=== PATIENT | male | born 1945 | race Caucasian/White ===

== ENCOUNTER 2016-10-27 13:20 | Emergency (ER) | payer MEDICARE, BC ==
[2016-10-27] MEDS ORDERED: Sodium Chloride 0.9% 10 ML Syringe FLUSH PRN (13:24)
--- NOTE | 2016-10-27 13:24 | EDM.PDOC ---
ED HPI GENERAL MEDICAL PROBLEM - General Chief Complaint: Chest Pain Stated Complaint: CHEST PAIN Time Seen by Provider: 10/27/16 13:24 Source of Information: Reports: Patient, Old Records, RN, RN Notes Reviewed History Limitations: Reports: No Limitations - History of Present Illness INITIAL COMMENTS - FREE TEXT/NARRATIVE: Arrives from home by POV with c/o chest pain that began last evening as he laid down to rest. Admits to very slight shortness of breath. Denies cough, nausea, rapid HR, palpitations, N/V, or abdominal pain. Pt states that he has not taken any aspirin or nitroglycerin. Onset Date: 10/26/16 Onset Time: 20:00 (approx. time) Duration: Constant, Waxing/Waning Location: Reports: Chest Quality: Reports: Ache Severity: Mild Improves with: Reports: None Worsens with: Reports: None Associated Symptoms: Reports: No Other Symptoms Left Chest Pain Score (Numeric/FACES): 2 - Related Data Allergies Allergy/AdvReac Type Severity Reaction Status Date / Time cephalexin Allergy Cannot Verified 10/27/16 14:06 Remember choline fenofibrate Allergy Cannot Verified 10/27/16 14:06 [From Trilipix] Remember ciprofloxacin Allergy Cannot Verified 10/27/16 14:06 Remember Penicillins Allergy Cannot Verified 10/27/16 14:06 Remember rosuvastatin calcium Allergy Cannot Verified 10/27/16 14:06 [From Crestor] Remember simvastatin Allergy Cannot Verified 10/27/16 14:06 Remember Home Meds: Home Meds Allopurinol [Allopurinol] 150 mg PO BID 06/17/14 [History] Aspirin/Dipyridamole [Aggrenox 200-25 MG] 1 cap PO BID 06/17/14 [History] Escitalopram [Lexapro] 10 mg PO DAILY 06/17/14 [History] Furosemide [Furosemide] 40 mg PO BID 06/17/14 [History] Past Medical History HEENT History: Reports: Hard of Hearing Cardiovascular History: Reports: High Cholesterol, Hypertension, Other (See Below) (AAA) Respiratory History: Reports: Sleep Apnea Gastrointestinal History: Reports: Diverticulosis Genitourinary History: Reports: Other (See Below) Other Genitourinary History: hyperuricemia Musculoskeletal History: Reports: Gout, Osteoarthritis Neurological History: Reports: TIA, Other (See Below) Other Neuro History: meningioencephalitis Psychiatric History: Reports: Depression Other Psychiatric History: sleep apnea Endocrine/Metabolic History: Reports: Obesity/BMI 30+ Oncologic (Cancer) History: Reports: None - Past Surgical History GI Surgical History: Reports: Cholecystectomy, Colonoscopy, Hernia, Inguinal, Hernia Repair/Other Social & Family History - Family History Oncologic: Reports: Colon, Prostate - Tobacco Use Smoking Status *Q: Never Smoker Second Hand Smoke Exposure: No - Recreational Drug Use Recreational Drug Use: No - Living Situation & Occupation Living situation: Reports: Occupation: Retired ED ROS GENERAL - Review of Systems Review Of Systems: ROS reveals no pertinent complaints other than HPI. ED EXAM, GENERAL - Physical Exam Exam: See Below Exam Limited By: No Limitations General Appearance: Alert, No Apparent Distress, Obese Eye Exam: Bilateral Eye: Normal Inspection Ears: Hearing Loss (chronic/stable) Nose: Normal Inspection, Normal Mucosa, No Blood Throat/Mouth: Normal Inspection, Normal Lips, Normal Teeth, Normal Gums, Normal Oropharynx, Normal Voice, No Airway Compromise Head: Atraumatic, Normocephalic Neck: Normal Inspection, Supple, Non-Tender, Full Range of Motion Respiratory/Chest: No Respiratory Distress, Lungs Clear, No Accessory Muscle Use , Chest Non-Tender, Decreased Breath Sounds Cardiovascular: Regular Rate, Rhythm, No Edema GI/Abdominal: Normal Bowel Sounds, Soft, Other (benign morbidly obese abdomen) (Male) Exam: Deferred Rectal (Males) Exam: Deferred Extremities: Normal Inspection, Normal Range of Motion, Non-Tender, Normal Capillary Refill, No Pedal Edema Neurological: Alert, Oriented, CN II-XII Intact, Normal Cognition, No Motor/ Sensory Deficits Psychiatric: Normal Mood Skin Exam: Warm, Dry, Intact, Normal Color, No Rash EKG INTERPRETATION EKG Date: 10/27/16 Time: 13:28 Rhythm: Other (Sinus tach.) Rate (Beats/Min): 102 [place]: Normal P-Wave: Present QRS: Other (old inferior Q-waves) ST-T: Normal QT: Normal Comparison: NA - No Prior EKG EKG Interpretation Comments: Repeat EKG at 1851: no significant change, no acute ischemic changes. Course - Vital Signs Last Recorded V/S: Last Vital Signs Temp 35.6 C 10/27/16 13:24 Pulse 89 10/27/16 15:39 Resp 20 10/27/16 15:39 BP 120/69 10/27/16 15:39 Pulse Ox 94 L 10/27/16 15:39 - Orders/Labs/Meds Orders: Active Orders 24 hr Category Date Time Status EKG 12 Lead [EKG Documentation Completion] [] ONETIME Care 10/27/16 18:15 Active EKG 12 Lead [EKG Documentation Completion] [RC] STAT Care 10/27/16 13:24 Active Peripheral IV Care [RC] . DIRECTED Care 10/27/16 13:25 Active Heart Healthy Diet [DIET] Diet 10/27/16 Dinner Active TROPONIN I [CHEM] Timed Lab 10/27/16 18:35 Received Nitroglycerin [Nitrostat] Med 10/27/16 13:27 Active 0.4 mg SL Q5M PRN Sodium Chloride 0.9% [Saline Flush] Med 10/27/16 13:24 Active 10 ml FLUSH ASDIRECTED PRN Peripheral IV Insertion Adult [OM.PC] Stat Oth 10/27/16 13:24 Ordered Medication Orders Nitroglycerin (Nitrostat) 0.4 mg SL Q5M PRN PRN Reason: Chest Pain Last Admin: 10/27/16 13:39 Dose: 0.4 mg Sodium Chloride (Saline Flush) 10 ml FLUSH ASDIRECTED PRN PRN Reason: Keep Vein Open Last Admin: 10/27/16 13:43 Dose: 10 ml Labs: Laboratory Tests 10/27/16 10/27/16 10/27/16 Range/Units 13:45 13:45 13:45 WBC 10.3 H (5.0-10.0) 10^3/uL RBC 4.32 L (4.6-6.2) 10^6/uL Hgb 12.8 L (14.0-18.0) g/dL Hct 39.3 L (40.0-54.0) % MCV 91.0 (80-100) fL MCH 29.6 (27.0-34.0) pg MCHC 32.6 L (33.0-35.0) g/dL Plt Count 198 (150-450) 10^3/uL Neut % (Auto) 64.3 (42.2-75.2) % Lymph % (Auto) 26.8 (20.5-50.1) % [facility] % (Auto) 6.7 (2-8) % Eos % (Auto) 1.9 (1.0-3.0) % Baso % (Auto) 0.3 (0.0-1.0) % PT 9.7 (9.0-12.0) SEC INR 1.0 (0.9-1.2) APTT 25.4 (22.0-34.0) SEC D-Dimer, Quantitative 611 H (0-400) ng/mL Sodium 138 (135-145) mmol/L Potassium 4.1 (3.6-5.0) mmol/L Chloride 100 L (101-111) mmol/L Carbon Dioxide 25.0 (21.0-31.0) mmol/L Anion Gap 17.1 BUN 21 H (7-18) mg/dL Creatinine 1.0 (0.6-1.3) mg/dL Est Cr Clr Drug Dosing TNP Estimated GFR (MDRD) > 60 BUN/Creatinine Ratio 21.00 Glucose 186 H (74-105) mg/dL Calcium 9.3 (8.4-10.2) mg/dl Total Bilirubin 0.7 (0.2-1.0) mg/dL AST 29 (10-42) IU/L ALT 23 (10-60) IU/L Alkaline Phosphatase 65 (42-121) IU/L Creatine Kinase (26-174) IU/L Creatine Kinase Index (0-2.4) % CK-MB (CK-2) (0.4-4.7) ng/mL Troponin I < 0.02 (0.00-0.02) ng/ml B-Natriuretic Peptide 21 (0-100) pg/ml Total Protein 7.0 (6.7-8.2) g/dl Albumin 3.8 (3.2-5.5) g/dl Globulin 3.2 Albumin/Globulin Ratio 1.19 Amylase 36 (28-100) U/L Lipase 21 L (22-51) U/L /12/05 Range/Units 13:45 WBC (5.0-10.0) 10^3/uL RBC (4.6-6.2) 10^6/uL Hgb (14.0-18.0) g/dL Hct (40.0-54.0) % MCV (80-100) fL MCH (27.0-34.0) pg MCHC (33.0-35.0) g/dL Plt Count (150-450) 10^3/uL Neut % (Auto) (42.2-75.2) % Lymph % (Auto) (20.5-50.1) % [facility] % (Auto) (2-8) % Eos % (Auto) (1.0-3.0) % Baso % (Auto) (0.0-1.0) % PT (9.0-12.0) SEC INR (0.9-1.2) APTT (22.0-34.0) SEC D-Dimer, Quantitative (0-400) ng/mL Sodium (135-145) mmol/L Potassium (3.6-5.0) mmol/L Chloride (101-111) mmol/L Carbon Dioxide (21.0-31.0) mmol/L Anion Gap BUN (7-18) mg/dL Creatinine (0.6-1.3) mg/dL Est Cr Clr Drug Dosing Estimated GFR (MDRD) BUN/Creatinine Ratio Glucose (74-105) mg/dL Calcium (8.4-10.2) mg/dl Total Bilirubin (0.2-1.0) mg/dL AST (10-42) IU/L ALT (10-60) IU/L Alkaline Phosphatase (42-121) IU/L Creatine Kinase 283 H (26-174) IU/L Creatine Kinase Index 1.2 (0-2.4) % CK-MB (CK-2) 3.30 (0.4-4.7) ng/mL Troponin I (0.00-0.02) ng/ml B-Natriuretic Peptide (0-100) pg/ml Total Protein (6.7-8.2) g/dl Albumin (3.2-5.5) g/dl Globulin Albumin/Globulin Ratio Amylase (28-100) U/L Lipase (22-51) U/L Meds: Medications Generic Name Dose Route Start Last Admin Trade Name Freq PRN Reason Stop Dose Admin Nitroglycerin 0.4 mg 10/27/16 13:27 10/27/16 13:39 Nitrostat SL 0.4 mg Q5M PRN Administration Chest Pain Sodium Chloride 10 ml 10/27/16 13:24 10/27/16 13:43 Saline Flush FLUSH 10 ml ASDIRECTED PRN Administration Keep Vein Open Discontinued Medications Generic Name Dose Route Start Last Admin Trade Name Andressa PRN Reason Stop Dose Admin Aspirin 324 mg 10/27/16 13:27 10/27/16 13:32 Aspirin PO 10/27/16 13:28 324 mg ONETIME ONE Administration Iopamidol 100 ml 10/27/16 14:58 10/27/16 15:48 Isovue-370 (76%) IVPUSH 10/27/16 14:59 100 ml ONETIME ONE Administration - Radiology Interpretation Free Text/Narrative:: /CT chest: Low probability pulmonary embolism. No signs of heart failure, lung mass or lobar pneumonia. See rad report. Chest x-ray: No acute new cardiopulmonary abnormality. See rad report. Departure - Departure Time of Disposition: 19:10 Disposition: Home, Self-Care 01 Condition: Good Clinical Impression: Atypical chest pain Instructions: Nonspecific Chest Pain, [id number] Forms: ED Department Discharge Additional Instructions: No cardiac abnormality(s) or pulmonary (lung) blood clot found on today's evaluation. Follow up in clinic in two days with your doctor for recheck. Return to ER if worse at any time. Do not take nitroglycerin without consulting your doctor or a certified rehabilitation counselor as it caused a significant drop in your blood pressure. - My Orders Last 24 Hours: My Active Orders 10/27/16 13:24 EKG 12 Lead [EKG Documentation Completion] [RC] STAT Sodium Chloride 0.9% [Saline Flush] 10 ml FLUSH ASDIRECTED PRN Peripheral IV Insertion Adult [OM.PC] Stat 10/27/16 13:25 Peripheral IV Care [RC] . DIRECTED 10/27/16 13:27 Nitroglycerin [Nitrostat] 0.4 mg SL Q5M PRN 10/27/16 18:15 EKG 12 Lead [EKG Documentation Completion] [RC] ONETIME 10/27/16 18:35 TROPONIN I [CHEM] Timed 10/27/16 Dinner Heart Healthy Diet [DIET] - Assessment/Plan Last 24 Hours: My Active Orders 10/27/16 13:24 EKG 12 Lead [EKG Documentation Completion] [RC] STAT Sodium Chloride 0.9% [Saline Flush] 10 ml FLUSH ASDIRECTED PRN Peripheral IV Insertion Adult [OM.PC] Stat 10/27/16 13:25 Peripheral IV Care [RC] . DIRECTED 10/27/16 13:27 Nitroglycerin [Nitrostat] 0.4 mg SL Q5M PRN 10/27/16 18:15 EKG 12 Lead [EKG Documentation Completion] [RC] ONETIME 10/27/16 18:35 TROPONIN I [CHEM] Timed 10/27/16 Dinner Heart Healthy Diet [DIET]
[2016-10-27] MEDS ORDERED: Nitroglycerin 0.4 MG Tab.SL SL PRN (13:27)
[2016-10-27] MEDS ORDERED: Aspirin 81 MG Tab.Chew PO ONE (13:27)
--- NOTE | 2016-10-27 14:03 | CR ---
Clinical history: 71-year-old 110 pound male chest pain. Interpretation: Reasonable inspiratory effort [place] male with coarse bronchitic pattern and so me pleural parenchymal scarring (infiltrate?) blunting the left costophrenic sulcus that was present on 09 May 2015 exam i.e. unchanged. Normal cardiac silhouette without cephalization of flow or signs of alveolar edema. No lung mass, other focal lobar infiltrate or atelectasis. No pneumothorax. CONCLUSION: No acute new cardiopulmonary abnormality since 09 May 2015 exam.
[2016-10-27 14:09] LABS: CHLORIDE,CL 100 mmol/L (101-111); SODIUM,NA 138 mmol/L (135-145)
[2016-10-27] MEDS ORDERED: Iopamidol 755 Mg/ML 100 ML Bottle IVPUSH ONE (14:58)
[2016-10-27 15:41] VITALS: BP 120/69
--- NOTE | 2016-10-27 16:48 | CT ---
Clinical history: 71-year-old 412 pound male with chest pain whose serum d-dimer was 612 (pO2 92). Scan technique: PE CT scan of the chest compromised by patient body habitus and apparent Valsalva du ring exam (contrast demonstrated in both the superior vena cava and thoracic aorta but pulmonary art ryan is not well opacified) during the intravenous administration 100 cc nonionic Isovue 370 contrast while patient was lying supine on the Siemens multi slice scanner [place], [place] (5 cc/s via injector per PE protocol). All data archived in the PACS system for [employer], reformatting and study (lung/mediastinal windows). Interpretation: 1. Apparent flow defects throughout the pulmonary artery circulation i.e. no certain diagnostic evid ence of pulmonary artery embolism or thrombosis. 2. No focal lobar oligemia, peripheral pleural-based infarct, infiltrate, atelectasis or pleural eff usions. 3. No parenchymal lung nodule or mass lesion. No hilar or significant mediastinal lymphadenopathy bu t there do appear to be small paratracheal lymph nodes, on the left. Inflammatory? 4. 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 No fractu re or dislocation. 5. Mild left ventricular prominence without cephalization of vascular flow, signs of alveolar edema or dependent pleural effusion. No pericardial effusions. Normal caliber thoracic aorta i.e. no aneur ysm or dissection. CONCLUSION: Low probability pulmonary embolism. No signs of heart failure, lung mass or lobar pneumo art.
--- NOTE | 2016-11-11 21:38 | EKG ---
10/27/2016 - VERONICA WESTON - TIME: 06:51 p.m. EKG per my reading, shows sinus rhythm, no acute ST changes. [facility] /[id number]
--- NOTE | 2016-11-11 21:38 | EKG ---
10/27/2016 - VERONICA WESTON - TIME: 1:28 p.m. EKG per my reading, shows sinus rhythm with inferior Q-waves. [facility] /[id number]
== END 2016-10-27 20:15 | disposition home or self-care (01) ==
LOC: DL.ED 13:20
DX: R07.89 Other chest pain (principal); E78.00 Pure hypercholesterolemia, unspecified; I10 Essential (primary) hypertension; E66.9 Obesity, unspecified; F32.9 Major depressive disorder, single episode, unspecified; M19.90 Unspecified osteoarthritis, unspecified site; Z88.1 Allergy status to other antibiotic agents; Z88.8 Allergy status to other drugs, medicaments and biological substances; Z88.0 Allergy status to penicillin; Z79.899 Other long term (current) drug therapy; Z86.73 Personal history of transient ischemic attack (TIA), and cerebral infarction without residual deficits; Z90.49 Acquired absence of other specified parts of digestive tract; Z79.82 Long term (current) use of aspirin
CPT/HCPCS: 36415; 71010; 71260; 80053; 82150; 82550; 82553; 83690; 83880; 84484; 85025; 85379; 85610; 85730; 93005; 93010; 99285; A9270; J7050; Q9967; 99282

== ENCOUNTER 2016-12-04 17:14 | Emergency (ER) | payer MEDICARE, BC ==
[2016-12-04 18:10] VITALS: BP 135/75
[2016-12-04] MEDS ORDERED: Sodium Chloride 0.9% 1,000 ML IV SCH (19:00)
[2016-12-04] MEDS ORDERED: Clindamycin Phosphate 900 MG in Sodium Chloride 0.9% 100 ML IV ONE (19:01)
--- NOTE | 2016-12-04 19:04 | EDM.PDOC ---
ED HPI GENERAL MEDICAL PROBLEM - General Chief Complaint: Skin Complaint Stated Complaint: RASH BETWEEN LEGS Time Seen by Provider: 12/04/16 19:01 Source of Information: Reports: Patient History Limitations: Reports: No Limitations - History of Present Illness INITIAL COMMENTS - FREE TEXT/NARRATIVE: several days h/o worsening rash left inner thigh. - Related Data Allergies Allergy/AdvReac Type Severity Reaction Status Date / Time cephalexin Allergy Cannot Verified 10/27/16 14:06 Remember choline fenofibrate Allergy Cannot Verified 10/27/16 14:06 [From Trilipix] Remember ciprofloxacin Allergy Cannot Verified 10/27/16 14:06 Remember Penicillins Allergy Cannot Verified 10/27/16 14:06 Remember rosuvastatin calcium Allergy Cannot Verified 10/27/16 14:06 [From Crestor] Remember simvastatin Allergy Cannot Verified 10/27/16 14:06 Remember Home Meds: Home Meds Allopurinol [Allopurinol] 150 mg PO BID 06/17/14 [History] Aspirin/Dipyridamole [Aggrenox 200-25 MG] 1 cap PO BID 06/17/14 [History] Escitalopram [Lexapro] 10 mg PO DAILY 06/17/14 [History] Furosemide [Furosemide] 40 mg PO BID 06/17/14 [History] Past Medical History HEENT History: Reports: Hard of Hearing Cardiovascular History: Reports: High Cholesterol, Hypertension, Other (See Below) Respiratory History: Reports: Sleep Apnea Gastrointestinal History: Reports: Diverticulosis Genitourinary History: Reports: Other (See Below) Other Genitourinary History: hyperuricemia Musculoskeletal History: Reports: Gout, Osteoarthritis Neurological History: Reports: TIA, Other (See Below) Other Neuro History: meningioencephalitis Psychiatric History: Reports: Depression Other Psychiatric History: sleep apnea Endocrine/Metabolic History: Reports: Obesity/BMI 30+ Immunologic History: Reports: None Oncologic (Cancer) History: Reports: None Dermatologic History: Reports: None - Past Surgical History GI Surgical History: Reports: Cholecystectomy, Colonoscopy, Hernia, Inguinal, Hernia Repair/Other Social & Family History - Family History Oncologic: Reports: Colon, Prostate - Tobacco Use Smoking Status *Q: Never Smoker Second Hand Smoke Exposure: No - Caffeine Use Caffeine Use: Reports: Coffee, Soda - Recreational Drug Use Recreational Drug Use: No - Living Situation & Occupation Living situation: Reports: Occupation: Retired ED ROS GENERAL - Review of Systems Review Of Systems: ROS reveals no pertinent complaints other than HPI. ED EXAM, SKIN/RASH Exam: See Below Exam Limited By: No Limitations General Appearance: Alert, WD/WN, Mild Distress, Other (discomfort) Ears: Hearing Grossly Normal Throat/Mouth: Normal Voice, No Airway Compromise Head: Atraumatic Neck: Non-Tender, Full Range of Motion Respiratory/Chest: No Respiratory Distress Cardiovascular: Regular Rate, Rhythm GI/Abdominal: Soft, Non-Tender Extremities: Increased Warmth, Redness, Other (left upper inner thight cellulitis) Neurological: Alert, Oriented, Normal Cognition, Normal Gait, No Motor/Sensory Deficits Psychiatric: Normal Affect, Normal Mood Skin: Warm, Dry, Normal Color Location, Skin: Lower Extremity, Left Associated features: Warmth, Tenderness, Swelling, Inflammation Lymphatic: No Adenopathy Course - Vital Signs Last Recorded V/S: Last Vital Signs Temp 35.8 C 12/04/16 18:09 Pulse 81 12/04/16 18:09 Resp 20 12/04/16 18:09 BP 135/75 12/04/16 18:09 Pulse Ox 94 L 12/04/16 18:09 - Orders/Labs/Meds Orders: Active Orders 24 hr Category Date Time Status CULTURE BLOOD [BC] Stat Lab 12/04/16 19:10 Received Sodium Chloride 0.9% [Normal Saline] 1,000 ml Med 12/04/16 19:00 Active IV ASDIRECTED Medication Orders Sodium Chloride (Normal Saline) 1,000 mls @ 75 mls/hr IV ASDIRECTED YOLANDA Last Admin: 12/04/16 19:45 Dose: 75 mls/hr Labs: Laboratory Tests 12/04/16 12/04/16 12/04/16 Range/Units 19:10 19:10 19:10 WBC 12.2 H (5.0-10.0) 10^3/uL RBC 4.51 L (4.6-6.2) 10^6/uL Hgb 13.2 L (14.0-18.0) g/dL Hct 40.8 (40.0-54.0) % MCV 90.5 (80-100) fL MCH 29.3 (27.0-34.0) pg MCHC 32.4 L (33.0-35.0) g/dL Plt Count 211 (150-450) 10^3/uL Neut % (Auto) 61.9 (42.2-75.2) % Lymph % (Auto) 25.3 (20.5-50.1) % [place] % (Auto) 10.0 H (2-8) % Eos % (Auto) 2.6 (1.0-3.0) % Baso % (Auto) 0.2 (0.0-1.0) % Sodium 137 (135-145) mmol/L Potassium 4.6 (3.6-5.0) mmol/L Chloride 102 (101-111) mmol/L Carbon Dioxide 23.0 (21.0-31.0) mmol/L Anion Gap 16.6 BUN 21 H (7-18) mg/dL Creatinine 0.9 (0.6-1.3) mg/dL Est Cr Clr Drug Dosing 84.99 mL/min Estimated GFR (MDRD) > 60 BUN/Creatinine Ratio 23.33 Glucose 122 H (74-105) mg/dL Lactic Acid 1.4 (0.5-2.2) mmol/L Calcium 9.5 (8.4-10.2) mg/dl Total Bilirubin 0.6 (0.2-1.0) mg/dL AST 23 (10-42) IU/L ALT 19 (10-60) IU/L Alkaline Phosphatase 62 (42-121) IU/L Total Protein 7.3 (6.7-8.2) g/dl Albumin 4.0 (3.2-5.5) g/dl Globulin 3.3 Albumin/Globulin Ratio 1.21 Meds: Medications Generic Name Dose Route Start Last Admin Trade Name Freq PRN Reason Stop Dose Admin Sodium Chloride 1,000 mls @ 75 mls/hr 12/04/16 19:00 12/04/16 19:45 Normal Saline IV 75 mls/hr ASDIRECTED YOLANDA Administration Discontinued Medications Generic Name Dose Route Start Last Admin Trade Name Freq PRN Reason Stop Dose Admin Clindamycin Phosphate 900 mg/ 106 mls @ 200 mls/hr 12/04/16 19:01 12/04/16 19 :40 Sodium Chloride IV 12/04/16 19:32 200 mls/hr ONETIME ONE Administration - Re-Assessments/Exams Free Text/Narrative Re-Assessment/Exam: 12/04/16 19:[address] Alvarez who kindly admitted Pt. Departure - Departure Time of Disposition: 19:53 Disposition: Admitted As Inpatient 64 Condition: Good Clinical Impression: Cellulitis Qualifiers: Site of cellulitis: extremity Site of cellulitis of extremity: lower extremity Laterality: left Qualified Code(s): L03.116 - Cellulitis of left lower limb - Discharge Information Forms: ED Department Discharge - My Orders Last 24 Hours: My Active Orders 12/04/16 19:00 Sodium Chloride 0.9% [Normal Saline] 1,000 ml IV ASDIRECTED 12/04/16 19:10 CULTURE BLOOD [BC] Stat - Assessment/Plan Last 24 Hours: My Active Orders 12/04/16 19:00 Sodium Chloride 0.9% [Normal Saline] 1,000 ml IV ASDIRECTED 12/04/16 19:10 CULTURE BLOOD [BC] Stat
[2016-12-04 19:32] LABS: CHLORIDE,CL 102 mmol/L (101-111); SODIUM,NA 137 mmol/L (135-145)
== END 2016-12-04 20:22 | disposition home or self-care (01) ==
LOC: DL.ED 17:14
DX: L03.116 Cellulitis of left lower limb (principal); E78.00 Pure hypercholesterolemia, unspecified; I10 Essential (primary) hypertension; M19.90 Unspecified osteoarthritis, unspecified site; F32.9 Major depressive disorder, single episode, unspecified; E66.9 Obesity, unspecified; Z90.49 Acquired absence of other specified parts of digestive tract; Z98.890 Other specified postprocedural states; Z88.1 Allergy status to other antibiotic agents; Z88.0 Allergy status to penicillin; Z88.8 Allergy status to other drugs, medicaments and biological substances; Z79.82 Long term (current) use of aspirin; Z68.43 Body mass index [BMI] 50.0-59.9, adult
CPT/HCPCS: 36415; 80053; 83605; 85025; 87040; 96365; 99283; J7030; J7050; S0077

== ENCOUNTER 2017-03-10 02:39 | Emergency (ER) | payer MEDICARE, BC ==
[2017-03-10 02:46] VITALS: BP 143/85
[2017-03-10 03:43] LABS: CHLORIDE,CL 101 mmol/L (101-111); SODIUM,NA 138 mmol/L (135-145)
--- NOTE | 2017-03-10 04:00 | EDM.PDOC ---
ED HPI GENERAL MEDICAL PROBLEM - General Chief Complaint: Abdominal Pain Stated Complaint: ABD PAIN Time Seen by Provider: 03/10/17 03:03 Source of Information: Reports: Patient History Limitations: Reports: No Limitations - History of Present Illness INITIAL COMMENTS - FREE TEXT/NARRATIVE: Presents with c/o lower left abdominal pain onset approximately 1/2 hour [employer]. Has not taken anything for pain,. No fever or chills, Last BM yesterday afternoon. Left Lower Abdomen Pain Score (Numeric/FACES): 8 - Related Data Allergies Allergy/AdvReac Type Severity Reaction Status Date / Time cephalexin Allergy Cannot Verified 03/10/17 02:46 Remember choline fenofibrate Allergy Cannot Verified 03/10/17 02:46 [From Trilipix] Remember ciprofloxacin Allergy Cannot Verified 03/10/17 02:46 Remember Penicillins Allergy Cannot Verified 03/10/17 02:46 Remember rosuvastatin calcium Allergy Cannot Verified 03/10/17 02:46 [From Crestor] Remember simvastatin Allergy Cannot Verified 03/10/17 02:46 Remember Home Meds: Home Meds Allopurinol [Allopurinol] 150 mg PO BID 06/17/14 [History] Aspirin/Dipyridamole [Aggrenox 200-25 MG] 1 cap PO BID 06/17/14 [History] Escitalopram [Lexapro] 10 mg PO DAILY 06/17/14 [History] Furosemide [Furosemide] 40 mg PO BID 06/17/14 [History] Ezetimibe [Ezetimibe] 1 tab PO DAILY 03/10/17 [History] Memantine HCl [Memantine HCl] 1 tab PO DAILY 03/10/17 [History] Sertraline HCl [Sertraline HCl] 1 tab PO DAILY 03/10/17 [History] risperiDONE [risperiDONE] 1 tab PO DAILY 03/10/17 [History] Past Medical History HEENT History: Reports: Hard of Hearing Cardiovascular History: Reports: High Cholesterol, Hypertension Respiratory History: Reports: Sleep Apnea Gastrointestinal History: Reports: Diverticulosis Genitourinary History: Reports: Other (See Below) Other Genitourinary History: hyperuricemia Musculoskeletal History: Reports: Gout, Osteoarthritis Neurological History: Reports: TIA, Other (See Below) Other Neuro History: meningioencephalitis Psychiatric History: Reports: Depression Other Psychiatric History: sleep apnea Endocrine/Metabolic History: Reports: Obesity/BMI 30+ Immunologic History: Reports: None Oncologic (Cancer) History: Reports: None Dermatologic History: Reports: None - Past Surgical History GI Surgical History: Reports: Cholecystectomy, Colonoscopy, Hernia, Inguinal, Hernia Repair/Other Social & Family History - Family History Oncologic: Reports: Colon, Prostate - Tobacco Use Smoking Status *Q: Unknown Ever Smoked Second Hand Smoke Exposure: No - Caffeine Use Caffeine Use: Reports: Coffee - Recreational Drug Use Recreational Drug Use: No - Living Situation & Occupation Living situation: Reports: Occupation: Retired ED ROS GENERAL - Review of Systems Review Of Systems: See Below Constitutional: Denies: Fever, Chills HEENT: Reports: No Symptoms Respiratory: Reports: No Symptoms Cardiovascular: Reports: No Symptoms GI/Abdominal: Reports: Abdominal Pain. Denies: Constipation, Diarrhea, Decreased Appetite, Distension, Nausea, Vomiting : Reports: No Symptoms Musculoskeletal: Reports: No Symptoms Skin: Reports: No Symptoms Neurological: Reports: No Symptoms, Other (mild dementia hx) Psychiatric: Reports: Anxiety (hx) ED EXAM, GI/ABD - Physical Exam Exam: See Below Exam Limited By: No Limitations General Appearance: Alert, No Apparent Distress, Obese (morbid) Eyes: Bilateral: Normal Appearance Ears: Normal External Exam Nose: Normal Inspection Throat/Mouth: Normal Inspection Head: Atraumatic, Normocephalic Neck: Normal Inspection, Full Range of Motion Respiratory/Chest: No Respiratory Distress, Lungs Clear, Normal Breath Sounds Cardiovascular: Normal Peripheral Pulses, Regular Rate, Rhythm GI/Abdominal Exam: Soft, Tender (point tenderness LLQ with deep palpation), Abnormal Bowel Sounds (present, distant). No: Distended, Guarding, Mass Course - Vital Signs Last Recorded V/S: Last Vital Signs Temp 97.8 F 03/10/17 02:45 Pulse 95 03/10/17 02:45 Resp 20 03/10/17 02:45 BP 143/85 H 03/10/17 02:45 Pulse Ox 96 03/10/17 02:45 - Orders/Labs/Meds Orders: Active Orders 24 hr Category Date Time Status Abdomen 1V Upright [CR] Urgent Exams 03/10/17 03:25 Taken UA W/MICROSCOPIC [URIN] Stat Lab 03/10/17 03:41 Ordered Labs: Laboratory Tests 03/10/17 03/10/17 Range/Units 03:15 03:15 WBC 9.7 (5.0-10.0) 10^3/uL RBC 4.34 L (4.6-6.2) 10^6/uL Hgb 12.9 L (14.0-18.0) g/dL Hct 40.0 (40.0-54.0) % MCV 92.2 (80-100) fL MCH 29.7 (27.0-34.0) pg MCHC 32.3 L (33.0-35.0) g/dL Plt Count 202 (150-450) 10^3/uL Neut % (Auto) 62.0 (42.2-75.2) % Lymph % (Auto) 26.5 (20.5-50.1) % [place] % (Auto) 8.8 H (2-8) % Eos % (Auto) 2.3 (1.0-3.0) % Baso % (Auto) 0.4 (0.0-1.0) % Sodium 138 (135-145) mmol/L Potassium 4.9 (3.6-5.0) mmol/L Chloride 101 (101-111) mmol/L Carbon Dioxide 33.0 H D (21.0-31.0) mmol/L Anion Gap 8.9 BUN 20 H (7-18) mg/dL Creatinine 1.0 (0.6-1.3) mg/dL Est Cr Clr Drug Dosing 76.49 mL/min Estimated GFR (MDRD) > 60 BUN/Creatinine Ratio 20.00 Glucose 130 H (74-105) mg/dL Calcium 9.6 (8.4-10.2) mg/dl Total Bilirubin 0.5 (0.2-1.0) mg/dL AST 22 (10-42) IU/L ALT 19 (10-60) IU/L Alkaline Phosphatase 61 (42-121) IU/L Total Protein 7.2 (6.7-8.2) g/dl Albumin 4.0 (3.2-5.5) g/dl Globulin 3.2 Albumin/Globulin Ratio 1.25 - Re-Assessments/Exams Free Text/Narrative Re-Assessment/Exam: 03/10/17 04:03 Patient states ready to leave, Refuses UA. Departure - Departure Time of Disposition: 04:04 Disposition: Home, Self-Care 01 Condition: Good Clinical Impression: Abdominal pain Qualifiers: Abdominal location: left lower quadrant Qualified Code(s): R10.32 - Left lower quadrant pain - Discharge Information Forms: ED Department Discharge Additional Instructions: Light diet follow up if pain worsens, fever, vomiting - My Orders Last 24 Hours: My Active Orders 03/10/17 03:25 Abdomen 1V Upright [CR] Urgent 03/10/17 03:41 UA W/MICROSCOPIC [URIN] Stat - Assessment/Plan Last 24 Hours: My Active Orders 03/10/17 03:25 Abdomen 1V Upright [CR] Urgent 03/10/17 03:41 UA W/MICROSCOPIC [URIN] Stat
== END 2017-03-10 04:34 | disposition home or self-care (01) ==
LOC: DL.ED 02:39
DX: R10.32 Left lower quadrant pain (principal); E66.01 Morbid (severe) obesity due to excess calories; I10 Essential (primary) hypertension; E78.00 Pure hypercholesterolemia, unspecified; F32.9 Major depressive disorder, single episode, unspecified; Z79.82 Long term (current) use of aspirin; Z79.899 Other long term (current) drug therapy; Z88.0 Allergy status to penicillin; Z88.1 Allergy status to other antibiotic agents; Z88.8 Allergy status to other drugs, medicaments and biological substances
CPT/HCPCS: 36415; 74000; 80053; 85025; 99282; 99284

== ENCOUNTER 2017-05-05 16:33 | Emergency (ER) | payer MEDICARE, BC ==
[2017-05-05 17:02] VITALS: BP 132/68
--- NOTE | 2017-05-05 18:03 | EDM.PDOC ---
ED HPI GENERAL MEDICAL PROBLEM - General Chief Complaint: Abdominal Pain Stated Complaint: SWALLOWED CHICKEN BONES, Time Seen by Provider: 05/05/17 17:50 Source of Information: Reports: Patient History Limitations: Reports: No Limitations - History of Present Illness INITIAL COMMENTS - FREE TEXT/NARRATIVE: This 71 yo male patient reports to the ED due to eating some chicken bones 4 days ago and not having a bowel movement for 3 days. The patient reports no current pain, no vomiting and no diarrhea. Duration: Day(s):, Constant Location: Reports: Abdomen Quality: Reports: Other Severity: Mild Improves with: Reports: None Worsens with: Reports: None Associated Symptoms: Reports: No Other Symptoms - Related Data Allergies Allergy/AdvReac Type Severity Reaction Status Date / Time cephalexin Allergy Cannot Verified 03/10/17 02:46 Remember choline fenofibrate Allergy Cannot Verified 03/10/17 02:46 [From Trilipix] Remember ciprofloxacin Allergy Cannot Verified 03/10/17 02:46 Remember Penicillins Allergy Cannot Verified 03/10/17 02:46 Remember rosuvastatin calcium Allergy Cannot Verified 03/10/17 02:46 [From Crestor] Remember simvastatin Allergy Cannot Verified 03/10/17 02:46 Remember Home Meds: Home Meds Allopurinol [Allopurinol] 150 mg PO BID 06/17/14 [History] Aspirin/Dipyridamole [Aggrenox 200-25 MG] 1 cap PO BID 06/17/14 [History] Escitalopram [Lexapro] 10 mg PO DAILY 06/17/14 [History] Furosemide [Furosemide] 40 mg PO BID 06/17/14 [History] Ezetimibe [Ezetimibe] 1 tab PO DAILY 03/10/17 [History] Memantine HCl [Memantine HCl] 1 tab PO DAILY 03/10/17 [History] Sertraline HCl [Sertraline HCl] 1 tab PO DAILY 03/10/17 [History] risperiDONE [risperiDONE] 1 tab PO DAILY 03/10/17 [History] Past Medical History HEENT History: Reports: Hard of Hearing Cardiovascular History: Reports: High Cholesterol, Hypertension Respiratory History: Reports: Sleep Apnea Gastrointestinal History: Reports: Diverticulosis Genitourinary History: Reports: Other (See Below) Other Genitourinary History: hyperuricemia Musculoskeletal History: Reports: Gout, Osteoarthritis Neurological History: Reports: TIA, Other (See Below) Other Neuro History: meningioencephalitis Psychiatric History: Reports: Depression Other Psychiatric History: sleep apnea Endocrine/Metabolic History: Reports: Obesity/BMI 30+ Immunologic History: Reports: None Oncologic (Cancer) History: Reports: None Dermatologic History: Reports: None - Past Surgical History GI Surgical History: Reports: Cholecystectomy, Colonoscopy, Hernia, Inguinal, Hernia Repair/Other Social & Family History - Family History Oncologic: Reports: Colon, Prostate - Tobacco Use Smoking Status *Q: Never Smoker Second Hand Smoke Exposure: No - Caffeine Use Caffeine Use: Reports: Coffee, Soda, Tea - Recreational Drug Use Recreational Drug Use: No - Living Situation & Occupation Living situation: Reports: Occupation: Retired ED ROS GENERAL - Review of Systems Review Of Systems: ROS reveals no pertinent complaints other than HPI. ED EXAM, GI/ABD - Physical Exam Exam: See Below Exam Limited By: No Limitations General Appearance: Alert, WD/WN, Anxious, Mild Distress Eyes: Bilateral: Normal Appearance, EOMI Ears: Normal External Exam, Normal Canal, Hearing Grossly Normal, Normal TMs Nose: Normal Inspection, Normal Mucosa, No Blood Throat/Mouth: Normal Inspection, Normal Lips, Normal Teeth, Normal Gums, Normal Oropharynx, Normal Voice, No Airway Compromise Head: Atraumatic, Normocephalic Neck: Normal Inspection, Supple, Non-Tender, Full Range of Motion Respiratory/Chest: No Respiratory Distress, Lungs Clear, Normal Breath Sounds, No Accessory Muscle Use, Chest Non-Tender Cardiovascular: Normal Peripheral Pulses GI/Abdominal Exam: Normal Bowel Sounds, Soft, Non-Tender, No Organomegaly, No Distention, No Abnormal Bruit, No Mass, Pelvis Stable, Other (obese) (Male) Exam: Deferred Rectal (Males) Exam: Deferred Back Exam: Normal Inspection, Full Range of Motion, NT Extremities: Normal Inspection, Normal Range of Motion, Non-Tender, Normal Capillary Refill, No Pedal Edema Neurological: Alert, Oriented, CN II-XII Intact, Normal Cognition, Normal Gait, Normal Reflexes, No Motor/Sensory Deficits Psychiatric: Normal Affect, Normal Mood Skin Exam: Warm, Dry, Intact, Normal Color, No Rash Lymphatic: No Adenopathy Course - Vital Signs Last Recorded V/S: Last Vital Signs Temp 35.8 C 05/05/17 17:00 Pulse 95 05/05/17 17:00 Resp 16 05/05/17 17:00 BP 132/68 05/05/17 17:00 Pulse Ox 96 05/05/17 17:00 Departure - Departure Time of Disposition: 18:05 Disposition: Home, Self-Care 01 Condition: Fair Clinical Impression: Constipation Qualifiers: Constipation type: unspecified constipation type Qualified Code(s): K59.00 - Constipation, unspecified - Discharge Information Instructions: Constipation, Adult Forms: ED Department Discharge Care Plan Goals: The patient was advised of the examination results during the visit. The patient was advised to take an adult dose of MiraLax daily for the next 4 days and increase his oral fluid intake. If the patient has any additional symptoms or concerns, the patient should follow-up with his primary care facility or return to the emergency department.
== END 2017-05-05 18:10 | disposition home or self-care (01) ==
LOC: DL.ED 16:33
DX: K59.00 Constipation, unspecified (principal); E78.00 Pure hypercholesterolemia, unspecified; I10 Essential (primary) hypertension; Z88.1 Allergy status to other antibiotic agents; Z88.0 Allergy status to penicillin; Z79.899 Other long term (current) drug therapy
CPT/HCPCS: 99282